=== PATIENT | male | born 1960 | race Caucasian/White ===

== ENCOUNTER 2022-04-07 08:56 | Inpatient (IN) | payer BC, OTHER ==
[2022-04-03 15:18] LABS: CLARITY,URINE CLEAR (Clear); COLOR,URINE YELLOW (Yellow); GLUCOSE, URINE NEGATIVE (Neg); KETONES,URINE NEGATIVE (Neg); LEUKOCYTE ESTERASE ,URINE NEGATIVE (Neg); NITRITES, URINE NEGATIVE (Neg); OCCULT BLOOD,URINE NEGATIVE (Neg); PH,URINE 6.5 (4.8-8.0); PROTEIN,URINE NEGATIVE (Neg); UROBILINOGEN,URINE 0.2 E.U/dL (0.2-1.0)
[2022-04-03 15:19] LABS: UA COLLECTION TYPE VOIDED
[2022-04-03 15:21] LABS: BASOPHILS # (AUTO) 0.1 X10'3 (0-0.2); BASOPHILS % (AUTO) 1.1 % (0-1); EOSINOPHILS # (AUTO) 0.3 X10'3 (0-0.9); EOSINOPHILS % (AUTO) 5.4 % (0-6); LYMPHOCYTES # (AUTO) 1.8 X10'3 (1.1-4.8); MEAN CORPUSCULAR HEMOGLOBIN 27.3 PG (27.0-31.0); MEAN CORPUSCULAR HGB CONC 33.7 g/dL (33.0-36.5); MEAN PLATELET VOLUME 10.7 FL (7.4-10.4); MONOCYTES # (AUTO) 0.4 X10'3 (0-0.9); MONOCYTES % (AUTO) 7.2 % (2-12); NEUTROPHILS # (AUTO) 3.3 X10'3 (1.8-7.7); NEUTROPHILS % (AUTO) 56.3 % (42-75); PRE OP HEMATOCRIT 45.7 % (42.0-52.0); PRE OP HEMOGLOBIN 15.4 g/dL (14.0-17.9); RED BLOOD COUNT 5.64 X10'6 (4.70-6.10); RED CELL DISTRIBUTION WIDTH 13.9 % (11.5-14.5)
[2022-04-03 15:30] LABS: PRE OP INR 1.1 INR; PRE OP PROTIME 11.1 SECONDS (9.0-12.0)
[2022-04-03 15:40] LABS: PRE OP PLATELET COUNT 63 X10'3 (140-440)
[2022-04-03 15:41] LABS: LARGE PLATELETS FEW; PLATELET ESTIMATE DECREASED
[2022-04-03 15:44] LABS: HEMOGLOBIN A1C 6.1 % (4.5-6.2)
[2022-04-03 15:45] LABS: ALBUMIN 4.3 G/DL (3.4-5.0); ALBUMIN/GLOBULIN RATIO 1.2 (1.1-1.5); ALKALINE PHOSPHATASE 42 IU/L (46-116); BLOOD UREA NITROGEN 22 MG/DL (7-18); BUN/CREATININE RATIO 14.4 (5.4-32.0); CALCIUM 9.2 MG/DL (8.5-10.1); CHLORIDE 103 MMOL/L (99-107); CREATININE 1.53 MG/DL (0.60-1.10); PRE OP ALT 40 U/L (30-65); PRE OP ANION GAP 6 (8-16); PRE OP AST 21 U/L (10-37); PRE OP BILIRUB, TOTAL 0.5 MG/DL (0.0-1.0); PRE OP GLUCOSE 95 MG/DL (70-104); PRE OP POTASSIUM 3.8 MMOL/L (3.4-5.1); PRE OP SODIUM 137 MMOL/L (135-145); TOTAL CARBON DIOXIDE 27.7 MMOL/L (24-32); TOTAL PROTEIN 7.8 G/DL (6.4-8.2); eGFR 47 ML/MIN
[~2022-04-07] VITALS: Ht 152.4 cm; Wt 104.0 kg
[2022-04-07] VITALS (18 sets, daily range): BP systolic 103–143; BP diastolic 57–96
[2022-04-07] MEDS: Insulin Reg/NS 100units/100mL 100 ML IV SCH ×2 (05:30→15:40)
[2022-04-07 06:23] LABS: ABG BASE EXCESS 1.1 mmol/L (-2.0-2.0); ABG HCO3 25.3 mmol/L (22.0-26.0); ABG OXYGEN SATURATION 96.7 % (94-97); ABG PCO2 (T) 38.9 mmHg (35.0-48.0); ALLEN'S TEST POSITIVE; FCOHb 0.5 % (0.0-3.9); FMetHb 0.1 % (0.0-1.5); FO2Hb 96.1 % (94-97); TOTAL HEMOGLOBIN 16.4 G/dl (14.0-18.0)
[~2022-04-07 08:56] MED LIST: ASPI-1071 PO; CALC-1017 PO; CHOL400T32 PO; DOCUMENT DATE & TIME OF BETA-BLOCKER PO ONE; FENO145T26 PO; LISI1TAB53 PO; LORazepam 2 mg/ml vial IV PRN; METO50TA7 PO; ROSU20TA2 PO; ceFAZolin 1000mg inj ONE; ceFAZolin inj. 2,000 MG in dextrose 5%-water 100 ML IV ONE; clindamycin-Cleocin 900mg/D5W 50 ML IV ONE; epiNEPHrine 1 mg/ml inj ONE; famotidine 20mg tablet PO ONE; metoprolol tartrate 12.5mg (1/2 tablet) PO ONE; mupirocin 2% ointment 22GM TP ONE; nitroPRUSSIDE 0.2mg/mL in NS 100 ML IV ONE; nitroPRUSSIDE sod inj. 50 MG in dextrose 5%-water 248 ML IV ONE; phenylephrine inj 50 MG in normal saline 250ml IV solN IV ONE; ringers solution, lacted 1,000 ML IV SCH; vancomycin 1,500 MG in NS 300ml IV soln IV ONE
[2022-04-07] MEDS ORDERED: ceFAZolin inj. 2,000 MG in dextrose 5%-water 100 ML IV ONE (12:00)
[2022-04-07] MEDS ORDERED: MIDAZolam 1mg/ml 10ml vial ONE (12:00)
[2022-04-07] MEDS ORDERED: fentaNYL /PF 50mcg/ml 5ml ampule ONE ×2 (12:01)
[2022-04-07] MEDS ORDERED: rocuronium 10mg/ml inj IV ONE ×2 (12:03)
[2022-04-07] MEDS ORDERED: propofol inj 20 ML IV ONE (12:03)
[2022-04-07] MEDS ORDERED: LIDOcaine 2% (20mg/ml) 5ml vial ONE (12:03)
[2022-04-07] MEDS ORDERED: esmolol 10mg/ml inj IV ONE (12:40)
[2022-04-07] MEDS ORDERED: protamine sulf. 10mg/ml inj. IV ONE (12:40)
[2022-04-07] MEDS ORDERED: NORepinephrine 8 MG in NS 250 ML BAG (32 mcg/ml) IV ONE (12:40)
[2022-04-07] MEDS ORDERED: sevoflurane 250ml liquid IH ONE (12:40)
[2022-04-07] MEDS ORDERED: ceFAZolin 1000mg inj ONE ×3 (12:43→12:57)
[2022-04-07] MEDS ORDERED: heparin 10,000 units/1 ML INJ ONE (13:00)
[2022-04-07] MEDS ORDERED: aminocaproic acid 250 MG/1 ML inj. ONE (13:00)
[2022-04-07 13:19] LABS: ABG BASE EXCESS -2.7 mmol/L (-2.0-2.0); ABG HCO3 23.9 mmol/L (22.0-26.0); ABG OXYGEN SATURATION 99.3 % (94-97); ABG PCO2 48.1 mmHg (35.0-48.0); ABG PO2 183.7 mmHg (75.0-100.0); CL (ABG) 103 mmol/L (98-110); FCOHb 0.4 % (0.0-3.9); FMetHb 0.3 % (0.0-1.5); FO2Hb 98.6 % (94-97); GLUCOSE (ABG) 89 mg/dl (70-105); IONIZED CA (ABG) 1.22 mmol/L (1.10-1.43); K (ABG) 3.7 mmol/L (3.5-5.0); TOTAL HEMOGLOBIN 14.2 G/dl (14.0-18.0)
[2022-04-07] MEDS ORDERED: albumin (Human) 5% 250ml 250 ML IV ONE ×2 (13:20→13:43)
[2022-04-07] MEDS ORDERED: esmolol inj. 0 ML IV ONE (14:07)
[2022-04-07 15:33] LABS: ACT @ 1.70 U 340 SEC (193-297); ACT @ 2.84 U 501 SEC (260-420); BASELINE ACT 147 SEC (101-148)
[2022-04-07] MEDS ORDERED: magnesium citrate 296ml oral solution PO PRN (15:40)
[2022-04-07] MEDS ORDERED: nitroGLYCERIN-Tridil 50MG/D5W 250 ML IV SCH (15:40)
[2022-04-07] MEDS ORDERED: bisacodyl 10mg suppository rectal RC PRN (15:40)
[2022-04-07] MEDS ORDERED: niCARDipine-NS 40mg/200ml IVPB 200 ML IV PRN (15:40)
[2022-04-07] MEDS ORDERED: ondansetron/PF 4mg/2ml inj IV PRN (15:40)
[2022-04-07] MEDS ORDERED: magnesium hydroxide 30ml (MOM) UD suspension PO PRN (15:40)
[2022-04-07] MEDS ORDERED: magnesium 4gm in 100ml NS 100 ML IV PRN (15:40)
[2022-04-07] MEDS ORDERED: albumin (Human) 5% 250ml 250 ML IV PRN (15:40)
[2022-04-07] MEDS ORDERED: acetaminophen 325mg tablet PO PRN ×2 (15:40)
[2022-04-07] MEDS ORDERED: metoclopramide 5 mg/ml inj IV PRN (15:40)
[2022-04-07] MEDS ORDERED: sodium phosphate inj. 30 MMOL in dextrose 5%-water 250 ML IV PRN (15:40)
[2022-04-07] MEDS ORDERED: sodium phosphate inj. 15 MMOL in dextrose 5%-water 250 ML IV PRN (15:40)
[2022-04-07] MEDS ORDERED: magnesium 2GM in 50ml NS 50 ML IV PRN (15:40)
[2022-04-07] MEDS ORDERED: potassium CL 10mEq/100ml bag 100 ML IV PRN (15:40)
[2022-04-07] MEDS ORDERED: dextrose 50%-water 50ml dispensing syringe IV PRN (15:40)
[2022-04-07] MEDS ORDERED: HYDROcodone/acetaminophen 10/325mg tab PO PRN (15:40)
[2022-04-07] MEDS ORDERED: insulin glargine (Lantus) pen - multi-dose SQ PRN (15:40)
[2022-04-07] MEDS ORDERED: sodium chloride 0.45% 1,000 ML IV SCH (15:40)
[2022-04-07] MEDS ORDERED: morphine 2 MG/ML inj. syringe IV PRN (15:40)
[2022-04-07] MEDS ORDERED: mineral oil 133ml enema RC PRN (15:40)
[2022-04-07 15:41] LABS: ABG BASE EXCESS VENOUS -6.8 mmol/L (-2.0 - 2.0); ABG HCO3 VENOUS 20.2 mmol/L (21.0-28.0); ABG PO2 VENOUS 90.7 mmHg (25.0-35.0); CL (ABG) 103 mmol/L (98-110); FCOHb VENOUS 0.2 %; FMetHb VENOUS 0.3 % (0.0 - 0.5); FO2Hb VENOUS 95.5 %; GLUCOSE (ABG) 194 mg/dl (70-105); IONIZED CA (ABG) 1.15 mmol/L (1.10-1.43); K (ABG) 3.8 mmol/L (3.5-5.0); TOTAL HEMOGLOBIN 13.2 G/dl (14.0-18.0)
[2022-04-07 15:43] LABS: ACTIVATED CLOTTING TIME 153 SEC (101-148)
[2022-04-07] MEDS: amiodarone/D5 360MG/200ML BAG 200 ML IV SCH ×2 (15:45→19:57)
[2022-04-07 16:20] LABS: BASOPHILS % (AUTO) 0.4 % (0-1); EOSINOPHILS # (AUTO) 0.2 X10'3 (0-0.9); EOSINOPHILS % (AUTO) 2.2 % (0-6); HEMATOCRIT 39.8 % (42.0-52.0); HEMOGLOBIN 13.2 g/dl (14.0-17.9); LYMPHOCYTES # (AUTO) 1.3 X10'3 (1.1-4.8); MEAN CORPUSCULAR HEMOGLOBIN 26.8 PG (27.0-31.0); MEAN CORPUSCULAR HGB CONC 33.1 g/dL (33.0-36.5); MEAN CORPUSCULAR VOLUME 81.1 FL (78-98); MEAN PLATELET VOLUME 10.6 FL (7.4-10.4); MONOCYTES # (AUTO) 0.3 X10'3 (0-0.9); NEUTROPHILS # (AUTO) 8.7 X10'3 (1.8-7.7); NEUTROPHILS % (AUTO) 82.4 % (42-75); RED BLOOD COUNT 4.91 X10'6 (4.70-6.10); RED CELL DISTRIBUTION WIDTH 13.9 % (11.5-14.5); WHITE BLOOD COUNT 10.5 X10'3 (4.5-11.0)
[2022-04-07 16:35] LABS: APTT 40 SECONDS (22-32)
[2022-04-07 16:36] LABS: ALANINE AMINOTRANSFERASE 37 U/L (12-78); ALBUMIN 3.5 G/DL (3.4-5.0); ALBUMIN/GLOBULIN RATIO 1.5 (1.1-1.5); ALKALINE PHOSPHATASE 29 IU/L (46-116); ANION GAP 12 (8-16); ASPARTATE AMINO TRANSFERASE 27 U/L (10-37); BILIRUBIN,TOTAL 0.6 MG/DL (0.1-1.0); BLOOD UREA NITROGEN 21 MG/DL (7-18); BUN/CREATININE RATIO 17.2 (5.4-32.0); CALCIUM 7.6 MG/DL (8.5-10.1); CHLORIDE 106 MMOL/L (99-107); CREATININE 1.22 MG/DL (0.60-1.10); GLUCOSE 181 MG/DL (70-104); MAGNESIUM 1.5 MG/DL (1.5-2.4); PHOSPHORUS 3.7 MG/DL (2.3-4.5); POTASSIUM 3.7 MMOL/L (3.5-5.1); SODIUM 139 MMOL/L (135-145); TOTAL CARBON DIOXIDE 21.5 MMOL/L (24-32); TOTAL PROTEIN 5.9 G/DL (6.4-8.2); eGFR 61 ML/MIN
[2022-04-07] MEDS: ceFAZolin/D5W- 1GM premix 50 ML IV SCH (16:37)
[2022-04-07 16:38] LABS: PLATELET COUNT 40 X10'3 (140-440)
[2022-04-07 16:51] LABS: ABG BASE EXCESS -5.2 mmol/L (-2.0-2.0); ABG HCO3 20.3 mmol/L (22.0-26.0); ABG OXYGEN SATURATION 89.1 % (94-97); ABG PCO2 (T) 35.9 mmHg (35.0-48.0); ABG PO2 (T) 50.8 mmHg (75.0-100.0); FCOHb 0.1 % (0.0-3.9); FMetHb 0.4 % (0.0-1.5); FO2Hb 88.7 % (94-97); PATIENT TEMPERATURE 34.7; PEEP 5 cm H2O; TOTAL HEMOGLOBIN 14.2 G/dl (14.0-18.0)
[2022-04-07] MEDS: potassium Cl 20mEq/100mL bag 100 ML IV PRN ×3 (16:59→19:28)
[2022-04-07] MEDS: morphine 4 MG/ML inj SYRINge IV PRN (18:44)
--- NOTE | 2022-04-07 19:36 | NUR ---
I have received report and assumed care of a 61 year old man with a history of rheumatoid arthritis, stage 3 kidney disease, Hypertension who underwent a CABG x 2 on 07 Apr 2022, Pt is resting in bed on a mechanical ventilator, Amiodarone drip in place for arrhythmia support, Tridil in place per MD orders for blood pressure control, insulin drip in place for glucose control. All medication transfusing via CVL, 3 midline chest tubes in place, no tracheal deviation, no crepitus or air leak noted. Pt opens his eyes moves all extremities and nodes head to yes no questions. Medicated as needed for pain and discomfort. Weaning ventilator as tolerated to extubation. Pt is in SR, electrolytes replaced per MD orders. Distal pulses palpable bilat.
[2022-04-07] MEDS: mupirocin 2% nasal ointment 1gm UD NS SCH (19:56)
[2022-04-07] MEDS: vancomycin/NS 1 GM ADD-VANTAGE 250 ML IV SCH (19:56)
[2022-04-07] MEDS: sennosides/docusate sodium tablet PO SCH (19:58)
[2022-04-07] MEDS: gabapentin 300mg capsule PO SCH (19:58)
[2022-04-07] MEDS: atorvastatin 10mg tablet PO SCH (21:00)
[2022-04-07 22:42] LABS: ABG BASE EXCESS -5.7 mmol/L (-2.0-2.0); ABG HCO3 17.7 mmol/L (22.0-26.0); ABG OXYGEN SATURATION 96.1 % (94-97); ABG PCO2 (T) 30.5 mmHg (35.0-48.0); ABG PO2 (T) 87.2 mmHg (75.0-100.0); FCOHb 0.3 % (0.0-3.9); FMetHb 0.3 % (0.0-1.5); FO2Hb 95.5 % (94-97); TIDAL VOLUME 594 mL; TOTAL HEMOGLOBIN 13.6 G/dl (14.0-18.0)
--- NOTE | 2022-04-07 23:30 | NUR ---
2250 pt extubated without difficulties, placed on 4 Liters N/C
[2022-04-08] VITALS (24 sets, daily range): BP systolic 103–135; BP diastolic 61–94
[2022-04-08] MEDS: ceFAZolin/D5W- 1GM premix 50 ML IV SCH ×3 (00:28→16:30)
[2022-04-08] MEDS: morphine 4 MG/ML inj SYRINge IV PRN (00:30)
[2022-04-08 00:53] LABS: BASOPHILS % (AUTO) 0.1 % (0-1); EOSINOPHILS % (AUTO) 0.1 % (0-6); HEMATOCRIT 38.2 % (42.0-52.0); HEMOGLOBIN 12.8 g/dl (14.0-17.9); LYMPHOCYTES # (AUTO) 0.4 X10'3 (1.1-4.8); LYMPHOCYTES % (AUTO) 3.5 % (21-51); MEAN CORPUSCULAR HEMOGLOBIN 27.3 PG (27.0-31.0); MEAN CORPUSCULAR HGB CONC 33.5 g/dL (33.0-36.5); MEAN CORPUSCULAR VOLUME 81.6 FL (78-98); MEAN PLATELET VOLUME 10.6 FL (7.4-10.4); MONOCYTES # (AUTO) 0.8 X10'3 (0-0.9); MONOCYTES % (AUTO) 5.9 % (2-12); NEUTROPHILS # (AUTO) 11.6 X10'3 (1.8-7.7); NEUTROPHILS % (AUTO) 90.4 % (42-75); RED BLOOD COUNT 4.68 X10'6 (4.70-6.10); RED CELL DISTRIBUTION WIDTH 13.7 % (11.5-14.5); WHITE BLOOD COUNT 12.8 X10'3 (4.5-11.0)
[2022-04-08 00:57] LABS: PLATELET COUNT 50 X10'3 (140-440)
[2022-04-08 01:04] LABS: ALANINE AMINOTRANSFERASE 42 U/L (12-78); ALBUMIN 3.4 G/DL (3.4-5.0); ALBUMIN/GLOBULIN RATIO 1.3 (1.1-1.5); ALKALINE PHOSPHATASE 26 IU/L (46-116); ANION GAP 12 (8-16); ASPARTATE AMINO TRANSFERASE 40 U/L (10-37); BILIRUBIN,TOTAL 0.3 MG/DL (0.1-1.0); BLOOD UREA NITROGEN 19 MG/DL (7-18); BUN/CREATININE RATIO 14.3 (5.4-32.0); CALCIUM 7.7 MG/DL (8.5-10.1); CHLORIDE 105 MMOL/L (99-107); CREATININE 1.33 MG/DL (0.60-1.10); GLUCOSE 111 MG/DL (70-104); MAGNESIUM 2.4 MG/DL (1.5-2.4); PHOSPHORUS 1.9 MG/DL (2.3-4.5); POTASSIUM 4.1 MMOL/L (3.5-5.1); SODIUM 137 MMOL/L (135-145); TOTAL CARBON DIOXIDE 20.3 MMOL/L (24-32); eGFR 55 ML/MIN
[2022-04-08 01:05] LABS: APTT 26 SECONDS (22-32)
[2022-04-08] MEDS: HYDROcodone/acetaminophen 10/325mg tab PO PRN ×2 (02:36→06:39)
[2022-04-08 02:45] LABS: LARGE PLATELETS FEW; PLATELET ESTIMATE DECREASED
[2022-04-08] MEDS: amiodarone/D5 360MG/200ML BAG 200 ML IV SCH (03:53)
--- NOTE | 2022-04-08 05:53 | NUR ---
no changes in pts condition, pt doing well, medicated as needed for pain,
--- NOTE | 2022-04-08 06:08 | NUR ---
report given to rec rn
[2022-04-08] MEDS: gabapentin 300mg capsule PO SCH ×3 (07:38→20:07)
[2022-04-08] MEDS: mupirocin 2% nasal ointment 1gm UD NS SCH ×2 (07:38→20:06)
[2022-04-08] MEDS: sennosides/docusate sodium tablet PO SCH ×2 (07:38→20:06)
[2022-04-08] MEDS ORDERED: aspirin 325mg tablet, delayed-release (Ecotrin) PO SCH (08:00)
[2022-04-08] MEDS: vancomycin/NS 1 GM ADD-VANTAGE 250 ML IV SCH ×2 (08:00→20:06)
--- NOTE | 2022-04-08 10:51 | NUR ---
Noted pt s/p CABGx2 post-op day 1 per EMR. Pt would benefit from CABG diet ed once more appropriate prior to discharge. Addendum: 04/08/22 at [address] Amended: Links added.
[2022-04-08] MEDS: metoprolol tartrate 12.5mg (1/2 tablet) PO SCH ×2 (11:27→20:06)
[2022-04-08] MEDS: amiodarone 200mg tablet PO SCH ×2 (11:28→20:07)
[2022-04-08] MEDS: aspirin 81mg, enteric-coated 1 TAB TABLET.DR PO SCH (11:28)
[2022-04-08] MEDS: Neutra Phos packet PO PRN ×2 (11:28→17:23)
[2022-04-08] MEDS ORDERED: ondansetron 4mg rapidly disintigrating tab PO PRN (13:36)
[2022-04-08] MEDS: Insulin Reg/NS 100units/100mL 100 ML IV SCH (14:50)
--- NOTE | 2022-04-08 18:25 | NUR ---
Patient in room CICU 2013. I have received report from JULIEN Barreto and had the opportunity to ask questions and assume patient care.
[2022-04-08] MEDS: atorvastatin 10mg tablet PO SCH (20:07)
[2022-04-09] VITALS (20 sets, daily range): BP systolic 104–143; BP diastolic 59–87
[2022-04-09] MEDS: ceFAZolin/D5W- 1GM premix 50 ML IV SCH (00:15)
[2022-04-09] MEDS: Insulin Reg/NS 100units/100mL 100 ML IV SCH (00:16)
[2022-04-09 04:23] LABS: BASOPHILS % (AUTO) 0.3 % (0-1); EOSINOPHILS # (AUTO) 0.1 X10'3 (0-0.9); EOSINOPHILS % (AUTO) 0.7 % (0-6); HEMATOCRIT 33.1 % (42.0-52.0); HEMOGLOBIN 11.1 g/dl (14.0-17.9); LYMPHOCYTES # (AUTO) 1.3 X10'3 (1.1-4.8); LYMPHOCYTES % (AUTO) 12.6 % (21-51); MEAN CORPUSCULAR HEMOGLOBIN 27.5 PG (27.0-31.0); MEAN CORPUSCULAR HGB CONC 33.6 g/dL (33.0-36.5); MEAN CORPUSCULAR VOLUME 81.7 FL (78-98); MEAN PLATELET VOLUME 10.7 FL (7.4-10.4); MONOCYTES # (AUTO) 0.8 X10'3 (0-0.9); NEUTROPHILS # (AUTO) 8.1 X10'3 (1.8-7.7); NEUTROPHILS % (AUTO) 78.4 % (42-75); PLATELET COUNT 52 X10'3 (140-440); RED BLOOD COUNT 4.05 X10'6 (4.70-6.10); RED CELL DISTRIBUTION WIDTH 14.1 % (11.5-14.5); WHITE BLOOD COUNT 10.3 X10'3 (4.5-11.0)
[2022-04-09 04:37] LABS: ALBUMIN 2.9 G/DL (3.4-5.0); ANION GAP 3 (8-16); BLOOD UREA NITROGEN 16 MG/DL (7-18); BUN/CREATININE RATIO 13.6 (5.4-32.0); CHLORIDE 106 MMOL/L (99-107); CREATININE 1.18 MG/DL (0.60-1.10); GLUCOSE 115 MG/DL (70-104); PHOSPHORUS 2.3 MG/DL (2.3-4.5); POTASSIUM 3.9 MMOL/L (3.5-5.1); SODIUM 136 MMOL/L (135-145); TOTAL CARBON DIOXIDE 27.4 MMOL/L (24-32); eGFR 63 ML/MIN
[2022-04-09 04:49] LABS: PLATELET ESTIMATE DECREASED
[2022-04-09 04:50] LABS: LARGE PLATELETS FEW
--- NOTE | 2022-04-09 06:22 | NUR ---
Problems reprioritized. Patient report given, questions answered & plan of care reviewed with JULIEN De Leon.
[2022-04-09] MEDS: amiodarone 200mg tablet PO SCH ×2 (07:29→20:22)
[2022-04-09] MEDS: aspirin 81mg, enteric-coated 1 TAB TABLET.DR PO SCH (07:29)
[2022-04-09] MEDS: mupirocin 2% nasal ointment 1gm UD NS SCH (07:29)
[2022-04-09] MEDS: gabapentin 300mg capsule PO SCH ×2 (07:30→13:35)
[2022-04-09] MEDS: metoprolol tartrate 12.5mg (1/2 tablet) PO SCH ×2 (07:30→20:21)
[2022-04-09] MEDS: sennosides/docusate sodium tablet PO SCH ×2 (07:31→20:22)
[2022-04-09] MEDS: pantoprazole 40mg Tablet.DR PO SCH (07:32)
[2022-04-09] MEDS ORDERED: furosemide 40mg/4ml inj IV ONE (07:55)
[2022-04-09] MEDS: magnesium Cl slow-release 64mg tablet PO SCH ×2 (08:00→20:00)
[2022-04-09] MEDS: potassium Cl 20 mEq SR tablet PO SCH ×2 (08:00→20:00)
--- NOTE | 2022-04-09 10:36 | NUR ---
CABG Consult: Pt s/p CABGx2 this admit per EMR. Pt/daughter seen by RD at bedside for written/verbal high protein/HH diet eds w/ RD contact information provided. Pt initial PO poor ~25% meals though pt reports appetite improved w/ 100% breakfast this AM. Pt reports he and his will be trying the Mediterranean diet at home following discharge. Pt is agreeable to strawberry-banana [employer] smoothie BIDBD; PA notified. RD encouraged pt to contact dietitian's office if further questions/concerns. Addendum: 04/09/22 at [address] Amended: Links added.
[2022-04-09] MEDS ORDERED: HYDR-3972 PO (15:28)
[2022-04-09] MEDS ORDERED: LOP25T PO (15:28)
[2022-04-09] MEDS ORDERED: AMIO200T67 PO (15:28)
[2022-04-09] MEDS: JUVEN Smoothie Arginine/Glut./Ca2+Bmb (Juven 19.3pkt) 240ml cup PO SCH (19:11)
[2022-04-09] MEDS: atorvastatin 10mg tablet PO SCH (20:22)
[2022-04-10] VITALS (7 sets, daily range): BP systolic 110–137; BP diastolic 65–86
--- NOTE | 2022-04-10 06:11 | NUR ---
Patient in room PCU 3010. I have received report from Antonieta VICTORIA and had the opportunity to ask questions and assume patient care.
[2022-04-10 06:12] LABS: ALBUMIN 2.8 G/DL (3.4-5.0); ANION GAP 4 (8-16); BLOOD UREA NITROGEN 19 MG/DL (7-18); BUN/CREATININE RATIO 14.4 (5.4-32.0); CHLORIDE 106 MMOL/L (99-107); CREATININE 1.32 MG/DL (0.60-1.10); GLUCOSE 115 MG/DL (70-104); POTASSIUM 3.8 MMOL/L (3.5-5.1); SODIUM 136 MMOL/L (135-145); TOTAL CARBON DIOXIDE 26.4 MMOL/L (24-32); eGFR 56 ML/MIN
[2022-04-10 06:16] LABS: BASOPHILS # (AUTO) 0.1 X10'3 (0-0.2); BASOPHILS % (AUTO) 0.7 % (0-1); EOSINOPHILS # (AUTO) 0.2 X10'3 (0-0.9); HEMATOCRIT 32.3 % (42.0-52.0); HEMOGLOBIN 10.9 g/dl (14.0-17.9); LYMPHOCYTES # (AUTO) 1.2 X10'3 (1.1-4.8); MEAN CORPUSCULAR HEMOGLOBIN 27.5 PG (27.0-31.0); MEAN CORPUSCULAR HGB CONC 33.8 g/dL (33.0-36.5); MEAN CORPUSCULAR VOLUME 81.6 FL (78-98); MONOCYTES # (AUTO) 0.7 X10'3 (0-0.9); NEUTROPHILS # (AUTO) 6.3 X10'3 (1.8-7.7); NEUTROPHILS % (AUTO) 75.3 % (42-75); PLATELET COUNT 76 X10'3 (140-440); RED BLOOD COUNT 3.96 X10'6 (4.70-6.10); RED CELL DISTRIBUTION WIDTH 14.1 % (11.5-14.5); WHITE BLOOD COUNT 8.4 X10'3 (4.5-11.0)
--- NOTE | 2022-04-10 06:17 | NUR ---
Problems reprioritized. Patient report given, questions answered & plan of care reviewed with JULIEN Chappell.
[2022-04-10] MEDS: JUVEN Smoothie Arginine/Glut./Ca2+Bmb (Juven 19.3pkt) 240ml cup PO SCH ×2 (07:30→18:15)
[2022-04-10] MEDS ORDERED: magnesium citrate 296ml oral solution PO ONE (07:50)
[2022-04-10] MEDS: aspirin 81mg, enteric-coated 1 TAB TABLET.DR PO SCH (09:14)
[2022-04-10] MEDS: metoprolol tartrate 12.5mg (1/2 tablet) PO SCH ×2 (09:15→20:21)
[2022-04-10] MEDS: pantoprazole 40mg Tablet.DR PO SCH (09:15)
[2022-04-10] MEDS: amiodarone 200mg tablet PO SCH ×2 (09:15→20:21)
[2022-04-10] MEDS: sennosides/docusate sodium tablet PO SCH ×2 (09:16→19:00)
[2022-04-10] MEDS: potassium Cl 20 mEq SR tablet PO SCH ×2 (09:18→20:21)
[2022-04-10 09:50] LABS: MAGNESIUM 1.8 MG/DL (1.5-2.4)
[2022-04-10] MEDS: magnesium Cl slow-release 64mg tablet PO SCH ×2 (11:36→19:00)
--- NOTE | 2022-04-10 18:34 | NUR ---
Problems reprioritized. Patient report given, questions answered & plan of care reviewed with Antonieta VICTORIA, patient stable at transfer of care.
[2022-04-10] MEDS: atorvastatin 10mg tablet PO SCH (20:21)
[2022-04-11 02:00] VITALS: BP 117/79
[2022-04-11 06:00] VITALS: BP 125/85
[2022-04-11 06:32] LABS: BASOPHILS # (AUTO) 0.1 X10'3 (0-0.2); BASOPHILS % (AUTO) 0.9 % (0-1); EOSINOPHILS # (AUTO) 0.3 X10'3 (0-0.9); EOSINOPHILS % (AUTO) 4.8 % (0-6); HEMATOCRIT 32.5 % (42.0-52.0); LYMPHOCYTES # (AUTO) 1.3 X10'3 (1.1-4.8); LYMPHOCYTES % (AUTO) 18.7 % (21-51); MEAN CORPUSCULAR HEMOGLOBIN 27.8 PG (27.0-31.0); MEAN CORPUSCULAR HGB CONC 33.8 g/dL (33.0-36.5); MEAN CORPUSCULAR VOLUME 82.3 FL (78-98); MEAN PLATELET VOLUME 9.4 FL (7.4-10.4); MONOCYTES # (AUTO) 0.6 X10'3 (0-0.9); MONOCYTES % (AUTO) 8.7 % (2-12); NEUTROPHILS # (AUTO) 4.8 X10'3 (1.8-7.7); NEUTROPHILS % (AUTO) 66.9 % (42-75); PLATELET COUNT 107 X10'3 (140-440); RED BLOOD COUNT 3.95 X10'6 (4.70-6.10); RED CELL DISTRIBUTION WIDTH 13.9 % (11.5-14.5); WHITE BLOOD COUNT 7.2 X10'3 (4.5-11.0)
--- NOTE | 2022-04-11 07:07 | NUR ---
Problems reprioritized. Patient report given, questions answered & plan of care reviewed with JULIEN Shah.
[2022-04-11 07:12] LABS: ALBUMIN 2.8 G/DL (3.4-5.0); ANION GAP 10 (8-16); BLOOD UREA NITROGEN 19 MG/DL (7-18); BUN/CREATININE RATIO 14.2 (5.4-32.0); CALCIUM 8.2 MG/DL (8.5-10.1); CHLORIDE 107 MMOL/L (99-107); CREATININE 1.34 MG/DL (0.60-1.10); GLUCOSE 110 MG/DL (70-104); POTASSIUM 4.1 MMOL/L (3.5-5.1); SODIUM 139 MMOL/L (135-145); TOTAL CARBON DIOXIDE 22.5 MMOL/L (24-32); eGFR 55 ML/MIN
[2022-04-11] MEDS: JUVEN Smoothie Arginine/Glut./Ca2+Bmb (Juven 19.3pkt) 240ml cup PO SCH (07:30)
[2022-04-11] MEDS: potassium Cl 20 mEq SR tablet PO SCH (10:00)
[2022-04-11] MEDS: pantoprazole 40mg Tablet.DR PO SCH (10:00)
[2022-04-11] MEDS: sennosides/docusate sodium tablet PO SCH (10:00)
[2022-04-11] MEDS: aspirin 81mg, enteric-coated 1 TAB TABLET.DR PO SCH (10:01)
[2022-04-11] MEDS: magnesium Cl slow-release 64mg tablet PO SCH (10:01)
[2022-04-11] MEDS: HYDROcodone/acetaminophen 10/325mg tab PO PRN (10:01)
[2022-04-11 10:02] VITALS: BP_SYST 142
[2022-04-11] MEDS: metoprolol tartrate 12.5mg (1/2 tablet) PO SCH (10:02)
[2022-04-11] MEDS: amiodarone 200mg tablet PO SCH (10:02)
--- NOTE | 2022-04-11 12:20 | NUR ---
DISCHARGE NOTE: Reviewed discharge paperwork with pt and family member. Pt. confident about going home. He is aware of f/u appointment needs and has already made one geovanni. Discussed diet, sternal precautions, exercise. Reviewed new medications and possible ASE. Pt. is aware to p/u today at [facility]. Pt. aware video game tester will let him know about cardiac rehab. PIV DC'd, pressure bandage applied, cannula intact, no s/sx bleeding noted. Pt. signed DC paperwork and was escorted out of hospital with belongings to private vehicle to go home. Pt. had opportunity to ask questions several times and had no questions.
== END 2022-04-11 12:31 | disposition home or self-care (01) | DRG 236 ==
LOC: PAS IN 08:56 → CICU 2S 15:59 → PCU 3S 04-09 21:05
PROVIDERS: ADMIT Thoracic Surgery (Cardiothoracic Vascular Surgery); ATTEND Thoracic Surgery (Cardiothoracic Vascular Surgery)
PROC: 02100Z8 Bypass Coronary Artery, One Artery from Right Internal Mammary, Open Approach (ICD-10-PCS; 2022-04-07)
PROC: B24BZZ4 Ultrasonography of Heart with Aorta, Transesophageal (ICD-10-PCS; 2022-04-07)
PROC: 03HY32Z Insertion of Monitoring Device into Upper Artery, Percutaneous Approach (ICD-10-PCS; 2022-04-07)
PROC: 05HY33Z Insertion of Infusion Device into Upper Vein, Percutaneous Approach (ICD-10-PCS; 2022-04-07)
PROC: B54MZZA Ultrasonography of Right Upper Extremity Veins, Guidance (ICD-10-PCS; 2022-04-07)
PROC: 02100Z9 Bypass Coronary Artery, One Artery from Left Internal Mammary, Open Approach (ICD-10-PCS; principal; 2022-04-07 12:40)
DX: I25.10 Atherosclerotic heart disease of native coronary artery without angina pectoris (principal); N18.30 Chronic kidney disease, stage 3 unspecified; Z20.822 Contact with and (suspected) exposure to COVID-19; D69.6 Thrombocytopenia, unspecified; E78.5 Hyperlipidemia, unspecified; I12.9 Hypertensive chronic kidney disease with stage 1 through stage 4 chronic kidney disease, or unspecified chronic kidney disease; I48.91 Unspecified atrial fibrillation
CPT/HCPCS: 93312; 93325; Z7506; Z7508; 36415; 36600; 71045; 71046; 80048; 80053; 81003; 82330; 82435; 82803; 82947; 82948; 83036; 83735; 84100; 84132; 84295; 85008; 85018; 85025; 85347; 85384; 85610; 85730; 86885; 86900; 86901; 86920; 87081; 87635; 93005; 93880; 93971; 94002; 94010; 94667; 94668; 94760; 97116; 97161; 97530; A4618; A6258; A6449; A7000; A7048; C1751; G0378; J0171; J0282; J0690; J1644; J1815; J1940; J2060; J2250; J2270; J2370; J2704; J2720; J3010; J3370; J3475; J3480; J3490; J7030; J7040; J7050; J7060; J7120; P9045